=== PATIENT | female | born 1995 | race African-American/Black ===

== ENCOUNTER 2024-09-01 17:46 | Outpatient (CLI) | payer BC, SELFPAY ==
--- OUTSIDE RECORDS SUMMARY | 2024-09-01 17:49 | XMS_ITS | Clinical Summary ---
Author Organization [facility] Address [address] [place] [id number] Care Team Providers Care Php Programmer Name Role Phone Ricardo Pryor PA-C Primary Care Provider [phone]- [phone] Allergies No known active allergies Medications norethindrone-et hinyl estradiol (AUROVELA 06/20) 1-20 MG-MCG tablet Take 1 tablet by mouth daily. Active Active Problems Problem Noted Date Diagnosed Date Teratoma of ovary, unspecified laterality 2024 Chronic abdominal pain 06/09/2024 Hemorrhoids, unspecified hemorrhoid type 025 Encounters Date Type Department Care Team Description 08/09/2024 9:40 AM CDT Office Visit [address] [phone] Ricardo Pryor PA-C Follow Up (Follow up) 08/09/2024 Travel 06/21/[address] [phone] Ricardo Pryor PA-C Results 06/15/2024 3:48 PM PULP MAKER - 06/15/2024 11:59 PM PULP MAKER Hospital Encounter [facility] [address] [place] [address] Ricardo Pryor PA-C Discharge Disposition: Home or Self Care (Routine Discharge) 06/15/2024 Travel 06/14/2024 Scan [facility] Scanned, [facility] 06/09/2024 9:00 AM PULP MAKER Office Visit [address] [phone] Ricardo Pryor PA-C New Patient (Establish care - pt c/o abdominal pain, sharp, episodes last around a couple minutes, everyday, belching, bloating, started 1 year ago ) 06/09/2024 Travel from Last 3 Months Family History Medical History Relation Comments Hypertension Mother Relation Status Comments Mother Social History Tobacco Use Types Packs/Day Years Used Date Smoking Tobacco: Never Passive Smoke Exposure: Never Smokeless Tobacco: Never Tobacco Cessation:Counseling Given: No Alcohol Use Standard Drinks/Week Comments Yes 1.7 (1 standard drink = 0.6 oz p ure alcohol) PHQ-2 Answer Date Recorded Patient Health Questionnaire-2 Score 0 06/09/2024 Comments No Sex and Gender Information Value Date Recorded Sex Assigned at Female 06/15/2024 3:47 PM PULP MAKER Legal Sex Female 2:50 PM PULP MAKER Gender Identity Not on file Sexual Orientation Not on file Last Filed Vital Signs Vital Sign Reading Time Taken Comments Blood Pressure 100/58 08/09/2024 9:43 AM CDT Pulse 86 08/09/2024 9:43 AM CDT Temperature 36.1 C (96.9 F) 08/09/2024 9:43 AM CDT Respiratory Rate 18 08/09/2024 9:43 AM CDT Oxygen Saturation 99% 08/09/2024 9:43 AM CDT Inhaled Oxygen Concentration - - Weight 57 kg (125 lb 9.6 oz) 08/09/2024 9:43 AM CDT Height 157.5 cm (5' 2 ) 08/09/2024 9:43 AM CDT Body Mass Index 22.97 08/09/2024 9:43 AM CDT Plan of Treatment Upcoming Encounters Date Type Department Care Team (Late st Contact Info) Description 08/15/2025 8:20 AM CDT Office Visit [address] [phone] Ricardo Pryor PA-C [address] [place] [address] Health Maintenance Due Date Last Done Comments Cervical Cancer Screening Pa p Smear (Age 21 to 29) Every 3 Years 1997 Annual Physical 2000 Hepatitis C 2015 DTaP, Tdap and Td Vaccines ( 1 - Tdap) 2016 Hepatitis B Vaccines (1 of 3 - 19+ 3-dose series) 2016 COVID-19 Vaccine (1 - 2023-2 5 season) 2024 Cervical Cancer Screening 06/09/2025 Po stponed from 1997 (Going to Outside Clinic) PHQ-2 (Physician [place]) Completed 06/09/2024 HPV Vaccines Aged Out No longer eligi ble based on patient's age to complete this topic Meningococcal B Vaccine Aged Out No l onger eligible based on patient's age to complete this topic Meningococcal Vaccine Aged Out No juanita hebert eligible based on patient's age to complete this topic Pneumococcal Vaccine: Pediat rics (0 to 5 Years) and At-Risk Patients (6 to 64 Years) Aged Out No longer eligi ble based on patient's age to complete this topic RSV Immunizations Under 20 Months Aged Out No longer eligible based on patient's age to complete this topic Procedures Procedure Name Priority Date/Time Associated Diagnosis Comments LIPASE Routine 08/06/2024 11:37 AM PULP MAKER Chronic abdominal pain AMYLASE Routine 08/06/2024 11:37 AM PULP MAKER Chronic abdominal pain COMPREHENSIVE METABOLIC PANEL Routine 08/06/2024 11:37 AM PULP MAKER Chronic abdominal pain CBC W/DIFF AUTOMATED Routine 08/06/2024 11:37 AM PULP MAKER Chronic abdominal pain CT ABD+PEL WO CON Routine 06/15/2024 4:0 4 PM PULP MAKER Chronic abdominal pain from Last 3 Months Results * COMPREHENSIVE METABOLIC PANEL (08/06/2024 11:37 AM PULP MAKER) GLUCOSE 83 65 - 99 mg/dL [facility] Comment: Fasting reference interval BUN 7 7 - 25 mg/dL [facility] CREATININE S/P/B 0.63 0.50 - 0.96 mg/dL [facility] GFR ESTIMATE 125 > OR = 60 mL/min/1. 73m2 [facility] BUN CREATININE RATIO SEE NOTE: (calc) [facility] Comment: Not Reported: BUN and Creatinine are within reference range. SODIUM S/P/B 138 135 - 146 mmol/L [facility] [employer] [facility] POTASSIUM S/P/B 4.3 3.5 - 5.3 mmol/L [facility] CHLORIDE S/P/B 104 98 - 110 mmol/L [facility] CO2 27 20 - 32 mmol/L [facility] CALCIUM S/P/B 9.2 8.6 - 10.2 mg/dL [facility] TOTAL PROTEIN S/P/B 7.2 6.1 - 8.1 g/dL [facility] [employer] ALBUMIN S/P/B 4.0 3.6 - 5.1 g/dL [facility] GLOBULIN 3.2 1.9 - 3.7 g/dL (calc) [facility] ALBUMIN/GLOBULI N RATIO 1.3 1.0 - 2.5 (calc) [facility] BILIRUBIN TOTAL S/P/B 0.5 0.2 - 1.2 mg/dL [facility] ALKALINE PHOSPHATASE S/P/B 44 31 - 125 U/L [facility] AST 14 10 - 30 U/L [facility] ALT 9 6 - 29 U/L [facility] 08/06/2024 11:3 7 AM PULP MAKER 08/06/2024 11:38 AM PULP MAKER Narrative Resulting Agency Comment Performing Organization Information: Site ID: [place] Name: [facility] Address: [address] [place] [address] Director: Leila Velasco MD us Ricardo Pryor PA-C LABORATORY Final Resu lt [facility] [address] [place] [address], * CBC W/DIFF AUTOMATED (08/06/2024 11:37 AM PULP MAKER) WBC 8.3 3.8 - 10.8 Thousand/u L [facility] RBC 4.58 3.80 - 5.10 Million/uL [facility] HGB 12.4 11.7 - 15.5 g/dL [facility] HCT 38.7 35.0 - 45.0 % [facility] MCV 84.5 80.0 - 100.0 fL [facility] MCH 27.1 27.0 - 33.0 pg [facility] MCHC 32.0 32.0 - 36.0 g/dL [facility] Comment: For adults, a slight decrease in the calculated MCHC value (in the range of 30 to 32 g/dL) is most likely not clinically significant; however, it should be interpreted with caution in correlation with other red cell parameters and the patient's clinical condition. RDW 14.3 11.0 - 15.0 % [facility] PLT 352 140 - 400 Thousand/u L [facility] MPV 10.6 7.5 - 12.5 fL [facility] ABS. NEUTROPHILS 4,241 1,500 - 7,800 cells/uL [facility] ABS. LYMPHOCYTES 3,121 850 - 3,900 cells/uL [facility] ABS. MONOCYTES 465 200 - 950 cells/uL [facility] ABS. EOSINOPHILS 390 15 - 500 cells/uL [facility] ABS. BASOPHILS 83 0 - 200 cells/uL [facility] SEG NEUTROPHILS 51.1 % [facility] LYMPHOCYTES 37.6 % [facility] MONOCYTES 5.6 % [facility] EOSINOPHILS 4.7 % [facility] BASOPHILS 1.0 % [facility] 08/06/2024 11:3 7 AM PULP MAKER 08/06/2024 11:38 AM PULP MAKER Narrative Resulting Agency Comment Performing Organization Information: Site ID: [place] Name: [facility] Address: [address] [address] Director: Leila Velasco MD us Ricardo Pryor PA-C LABORATORY Final Resu lt FRANCISCO THAKUR [facility] [address] [place] [address], [place] * AMYLASE (08/06/2024 11:37 AM PULP MAKER) AMYLASE S/P/B 51 21 - 101 U/L [facility] 08/06/2024 11:3 7 AM PULP MAKER 08/06/2024 11:38 AM PULP MAKER Narrative Resulting Agency Comment Performing Organization Information: Site ID: [facility]UBINA Name: [facility] Address: [address] [place], [place] [address]ner [facility] [place] [address] Director: Leila Velasco MD Ricardo Pryor PA-C LABORATORY Final Resu lt FRANCISCO THAKUR [facility] [id number] [place] [address], [place] [address], [place] * LIPASE (08/06/2024 11:37 AM PULP MAKER) LIPASE 15 7 - 60 U/L [facility] 08/06/2024 11:3 7 AM PULP MAKER 08/06/2024 11:38 AM PULP MAKER Narrative Resulting Agency Comment Performing Organization Information: Site ID: RUBINA Name: Francisco [facility] Address: [address] [place], [place] [address] [place] [address] Director: Leila Velasco MD Ricardo Pryor PA-C LABORATORY Final Resu lt FRANCISCO THAKUR [facility] [address] [place] [address], [place] * CT ABD+PEL WO CON (06/15/2024 4:04 PM PULP MAKER) Anatomical Region Laterality Modality Abdomen Computed Tomogra phy 06/15/2024 7:36 PM PULP MAKER Impressions 06/15/2024 7:41 PM PULP MAKER IMPRESSION: Bilateral mature ovarian teratomas. Recommend surgical CUSTOMS EXAMINER consultation. Referred By: RICARDO PRYOR Interpreted By: Alva Pereira DO, 06/15/2024 7:36 PM Narrative 06/15/2024 7:41 PM PULP MAKER [address] [address] STUDY: CT ABD+PEL WO CON: 06/15/2024 3:51 PM CLINICAL INFORMATION: chronic abdominal pain COMPARISON: None. TECHNIQUE: CT acquisition of the abdomen and pelvis. Coronal and sagittal reformatted images provided. A dose lowering technique was utilized for this procedure which may include but is not limited to dose reduction techniques, automated exposure control, and/or the use of iterative reconstruction in accordance with ALARA principle. IV Contrast: None Oral contrast: None. FINDINGS: LOWER CHEST: Unremarkable. ABDOMEN/PELVIS: Liver: Normal. Gallbladder/biliary: Normal gallbladder. No biliary ductal dilation. Pancreas: Unremarkable. Spleen: Normal. Adrenal glands: Normal. Kidneys and ureters: No hydronephrosis or hydroureter. No renal calcifications. Bladder: Normal. Reproductive organs: There are 2 adjacent masses which appear circumscribed and contain gross fat, soft tissue, and calcifications. The one on the right measures 3 6.6 x 4.6 x 5.5 cm. Mass on the left measures 10.1 x 6.0 x 7.5 cm. Stomach/bowel: Nonobstructive appearance. Appendix: Normal. Lymph nodes: No lymphadenopathy. Peritoneum: No intraperitoneal free air. No intraperitoneal free fluid. Vessels: Normal. MUSCULOSKELETAL: Abdominal wall: No soft tissue mass. Bones: No acute osseous abnormality. Soft tissues: Unremarkable. Procedure Note Alva Pereira DO - 06/15/[address] [address] STUDY: CT ABD+PEL WO CON: 06/15/2024 3:51 PM CLINICAL INFORMATION: chronic abdominal pain COMPARISON: None. TECHNIQUE: CT acquisition of the abdomen and pelvis. Coronal and sagittalreformatted images provided. A dose lowering technique was utilized forthis procedure which may include but is not limited to dose reductiontechniques, automated exposure control, and/or the use of iterativereconstruction in accordance with ALARA principle. IV Contrast: None Oral contrast: None. FINDINGS: LOWER CHEST: Unremarkable. ABDOMEN/PELVIS: Liver: Normal. Gallbladder/biliary: Normal gallbladder. No biliary ductal dilation. Pancreas: Unremarkable. Spleen: Normal. Adrenal glands: Normal. Kidneys and ureters: No hydronephrosis or hydroureter. No renalcalcifications. Bladder: Normal. Reproductive organs: There are 2 adjacent masses which appearcircumscribed and contain gross fat, soft tissue, and calcifications. Theone on the right measures 3 6.6 x 4.6 x 5.5 cm. Mass on the left rnwaepwu53.1 x 6.0 x 7.5 cm. Stomach/bowel: Nonobstructive appearance. Appendix: Normal. Lymph nodes: No lymphadenopathy. Peritoneum: No intraperitoneal free air. No intraperitoneal free fluid. Vessels: Normal. MUSCULOSKELETAL: Abdominal wall: No soft tissue mass. Bones: No acute osseous abnormality. Soft tissues: Unremarkable. IMPRESSION: Bilateral mature ovarian teratomas. Recommend surgical GYNconsultation. Referred By: RICARDO PRYOR Interpreted By: Alva Pereira DO, 06/15/2024 7:36 PM Ricardo Pryor PA-C CT Final Resu lt from Last 3 Months Insurance [facility] Care Teams Php Programmer Relationship Specialty Start Date End Date Ricardo Pryor PA-C [address] [place] [id number] PCP - General PHYSICIAN MOTEL MAID 06/09/24
== END 2024-09-01 17:47 | disposition home or self-care (01) ==
LOC: ANHLAB 17:48
PROVIDERS: Visit Provider Anesthesiology
DX: N83.209 Unspecified ovarian cyst, unspecified side (principal); N75.0 Cyst of Bartholin's gland
CPT/HCPCS: 36415; 86850; 86900; 86901

== ENCOUNTER 2024-09-12 00:15 | Day surgery (SDC) | payer BC, SELFPAY ==
[2024-09-01 10:57] VITALS: BMI 23.1
--- NOTE | 2024-09-01 10:58 | PC.NURSE ---
Report to the Outpatient Waiting Room, entrance under the green pavilion located off [facility], at time _0600_ on date _[id number]_. Planned Procedure Time: _0730_.? Time changes happen often and if your time is changed the preop area will call you the afternoon before. - You and your visitor will be asked to self-screen and do not enter if you have any COVID symptoms. Please call surgeon if you need to reschedule. - A mask is optional within the hospital at this time. Patients may have clear liquids (water, carbonated beverages, clear teas, apple juice) until 3 hours prior to surgery with a maximum of 20 ounces. - No food from midnight until time of surgery and no smoking, or chewing tobacco (or any form of nicotine). No chewing gum, candy or mints. Take only the following medications with a SIP of water on the morning of surgery: ___None____ DO NOT STOP ANY OF YOUR OTHER PRESCRIPTION MEDICATIONS PRIOR TO SURGERY EXCEPT THE FOLLOWING Hold all vitamins and supplements for 3 days per anesthesiologist. Medications to discontinue per physician Date to take last [id number]___[phone]____ Please no make-up, nail austrian, hairspray, perfume, deodorant, or body powder the day of surgery.? No jewelry (including any body piercings) or valuables the day of surgery, leave them at home.? Please take a shower or bath the night before, or the morning of, surgery with an antibacterial soap.? Wear comfortable, loose fitting clothing.? - Jewelry must be removed prior to entering the operating room.? Rings and piercings that are not removed may be cut off. - The hospital will not accept responsibility for valuables.? - Please leave all valuables, including medications, at home the day of surgery. If you are going home after surgery, a licensed catering driver must drive you home.? - NO public transportation without another adult if you receive anesthesia. - We recommend that an adult stay with you for 24 hours following discharge. - We also recommend that you do not drive, make important decision, drink alcoholic beverages, or take any drugs that were not prescribed by your health care provider for at least 24 hours after your discharge time. Follow any additional instructions given to you from your surgeon. Telephone instructions given to __Kathia___and asked if any additional questions and then verbalized understanding. Patient advised to call surgeon office or pre surgery nurse liaison [phone] if any additional questions.
--- NOTE | 2024-09-11 09:47 | P.HP_ITS ---
H&P: HPI History of Present Illness Date/Time: 09/11/24 09:47 Chief Complaint: pelvic pain Narrative: Kathia is a 29yo G0, who presents for surgery. She was having mid/upper right abdominal pain on and off for probably a year. She established care with a PCP who ordered a CT scan which showed bilateral ovarian cyst. TRAINING PROJECT MANAGER US was then ordered and showed a left sided cyst measuring ~10cm, right side is smaller at ~ 1-3cm; both appear to be dermoids. She also has a left bartholin's gland cyst. She has a h/o bartholin's cyst on this side and had it I&D'ed with catheter placement but it returned a couple months later and has been present since about 07/2023. she reports it is sometimes a little bothersome during intercourse. She has been on OCPs; no major issues with the Aurovela OCPs (would like that pill specifically). Review of Systems Constitutional: Constitutional: Denies chills, Denies fever(s) and Denies headache(s) Eyes: Eyes: Denies change in vision ENT: Denies dizziness and Denies headache(s) Cardiovascular: Cardiovascular: Denies chest pain and Denies dyspnea Respiratory: Respiratory: Denies cough and Denies dyspnea Gastrointestinal: Gastrointestinal: Denies abdominal pain and Denies change in stool character Genitourinary: Genitourinary: Denies abnormal menses, Reports genital lesions, Reports pelvic pain, Denies vaginal discharge, Denies vaginal odor and Denies vaginal pruritus Neurologic: Denies dizziness and Denies headache(s) Psychiatric: Psychiatric: Denies anxiety and Denies depression [facility] Past Medical History Medical History (Updated 07/06/24 @ 16:44 by Manda Knutson MD) Ovarian cyst Family History Family History Mother Hypertension Social History Social History (Updated 07/06/24 @ 15:56 by Sam Fong MA) Smoking status: Never smoker Second hand tobacco smoke exposure: No Alcohol intake: current Substance use: never Substance use type: does not use Do You Feel Safe in your Home?: Yes Lack of Transportation: No Lack of Food: Never True Current Housing: I Have Housing Concerned About Future Housing: No Difficulty Paying Gas/Electric Bills: No Difficulty Paying for Meds: No Currently Unemployed: No Education: Bachelor's Degree Difficulty w/ Childcare or Family Care: No Living arrangements: alone Occupation/Education: occupation Gender identity (if verbalized by the patient): Female Sexual Orientation (if Verbalized by the Patient): Straight or Heterosexual Spiritual care concerns: No Meds Home Medications and Allergies Home Medications ?Medication ?Instructions ?Recorded ?Confirmed ?Type cetirizine 10 mg tablet 10 mg PO DAILY PRN allergy symptoms 02/10/24 09/01/24 History Aurovela 24 Fe 1 mg-20 mcg (24)/75 1 tablet PO DAILY #84 tabs 07/06/24 09/01/24 Rx mg (4) tablet (norethindrone-e.estradiol-iron) multivitamin 1 tablet PO DAILY 07/06/24 09/01/24 History zinc acetate 25 mg (zinc) capsule 25 mg PO DAILY 07/06/24 09/01/24 History Allergies Allergy/AdvReac Type Severity Reaction Status Date / Time No Known Allergies Allergy Verified 09/01/24 10:48 Exam Const: General: cooperative, healthy appearing, comfortable and no acute distress Orientation/consciousness: patient oriented x3 Resp: Effort & Inspection: normal respiratory effort Cardio: Rate: regular rate GI: Inspection: normal to inspection GI Palp: No abdominal tenderness and Yes Soft to palpation : Other: deferred to OR Skin: General skin exam: normal color Neuro: General: patient oriented x3 Extrem: General: normal to inspection Psych: Appearance: grossly normal Affect: normal affect Attitude: cooperative Assessment and Plan Assessment and plan (1) Ovarian cyst: Qualifiers: Laterality: bilateral Qualified Code(s): N83.201 - Unspecified ovarian cyst, right side; N83.202 - Unspecified ovarian cyst, left side Code(s): N83.209 - Unspecified ovarian cyst, unspecified side Status: Acute (2) Cyst of left Bartholin's gland: Code(s): N75.0 - Cyst of Bartholin's gland Status: Acute Plan - Will proceed with scheduling robotic assisted left ovarian cystectomy, left Bartholin's gland marsupialization, and possible right ovarian cystectomy, possible chromopertubation - Risks and benefits discussed in detail
[2024-09-12] VITALS (12 sets, daily range): BP systolic 95–114; BP diastolic 62–93; PULSE 68–109; RESP 14–18; TEMP 36.2–36.6; O2SAT 99–100
--- OUTSIDE RECORDS SUMMARY | 2024-09-12 00:17 | XMS_ITS | Clinical Summary ---
Author Organization [facility] Address [address] [place] [id number] Care Team Providers Care Stock Grader Name Role Phone Ricardo Pryor PA-C Primary Care Provider [phone]- [phone] Allergies No known active allergies Medications norethindrone-et hinyl estradiol (AUROVELA 06/20) 1-20 MG-MCG tablet Take 1 tablet by mouth daily. Active Active Problems Problem Noted Date Diagnosed Date Teratoma of ovary, unspecified laterality 2024 Chronic abdominal pain 06/09/2024 Hemorrhoids, unspecified hemorrhoid type 025 Encounters Date Type Department Care Team Description 08/09/2024 9:40 AM CDT Office Visit [address] [phone] Ricardo Pryor PA-C Follow Up (Follow up) 08/09/2024 Travel 06/21/[address] [phone] Ricardo Pryor PA-C Results 06/15/2024 3:48 PM SENIOR GIS ANALYST - 06/15/2024 11:59 PM SENIOR GIS ANALYST Hospital Encounter [facility] [address] [place] [address] Ricardo Pryor PA-C Discharge Disposition: Home or Self Care (Routine Discharge) 06/15/2024 Travel 06/14/2024 Scan [facility] Scanned, [facility] from Last 3 Months Family History Medical [...] Sex Assigned at Female 06/15/2024 3:47 PM SENIOR GIS ANALYST Legal Sex Female 2:50 PM SENIOR GIS ANALYST Gender Identity Not on file Sexual Orientation [...] Description 08/15/2025 8:20 AM CDT Office Visit [facility] Family Medicine - [place] [address] [place] [phone] Ricardo Pryor PA-C [address] [place] [address] Health Maintenance Due Date Last Done Comments Cervical Cancer Screening Josafat urrutia Smear (Age 21 to 29) Every 3 Years 1997 Annual Physical 2000 Hepatitis C 2015 DTaP, Tdap and Td Vaccines ( 1 - Tdap) 2016 Hepatitis B Vaccines (1 of 3 - 19+ 3-dose series) 2016 COVID-19 Vaccine (1 - 2024-2 5 season) 2024 Cervical Cancer Screening 06/09/2025 Po stponed from 1997 (Going to Outside Clinic) PHQ-2 (Physician [place]) Completed 06/09/2024 HPV Vaccines Aged Out No [...] 5 Years) and At-Risk Patients (6 to 49 Years) Aged Out No longer eligi ble based on patient's age to complete this topic RSV Immunizations Under 20 Months Aged Out No longer eligible based on patient's age to complete this topic Procedures Procedure Name Priority Date/Time Associated Diagnosis Comments LIPASE Routine 08/06/2024 11:37 AM SENIOR GIS ANALYST Chronic abdominal pain AMYLASE Routine 08/06/2024 11:37 AM SENIOR GIS ANALYST Chronic abdominal pain COMPREHENSIVE METABOLIC PANEL Routine 08/06/2024 11:37 AM SENIOR GIS ANALYST Chronic abdominal pain CBC W/DIFF AUTOMATED Routine 08/06/2024 11:37 AM SENIOR GIS ANALYST Chronic abdominal pain CT ABD+PEL WO CON Routine 06/15/2024 4:0 4 PM SENIOR GIS ANALYST Chronic abdominal pain from Last 3 Months Results * COMPREHENSIVE METABOLIC PANEL (08/06/2024 11:37 AM SENIOR GIS ANALYST) GLUCOSE 83 65 - 99 mg/dL [facility] Comment: Fasting reference interval BUN 7 7 - 25 mg/dL [facility] CREATININE S/P/B 0.63 0.50 - 0.96 mg/dL [facility] GFR ESTIMATE 125 > OR = 60 mL/min/1. 73m2 [facility] BUN CREATININE RATIO SEE NOTE: (calc) [facility] Comment: Not Reported: BUN and Creatinine are within reference range. SODIUM S/P/B 138 135 - 146 mmol/L [facility] POTASSIUM S/P/B 4.3 3.5 - 5.3 mmol/L [facility] CHLORIDE S/P/B 104 98 - 110 mmol/L [facility] CO2 27 20 - 32 mmol/L [facility] CALCIUM S/P/B 9.2 8.6 - 10.2 mg/dL [facility] TOTAL PROTEIN S/P/B 7.2 6.1 - 8.1 g/dL [facility] ALBUMIN S/P/B 4.0 3.6 - 5.1 g/dL [facility] GLOBULIN 3.2 1.9 - 3.7 g/dL (calc) [facility] ALBUMIN/GLOBULI N RATIO 1.3 1.0 - 2.5 (calc) [facility] BILIRUBIN TOTAL S/P/B 0.5 0.2 - 1.2 mg/dL [facility] ALKALINE PHOSPHATASE S/P/B 44 31 - 125 U/L [facility] AST 14 10 - 30 U/L [facility] ALT 9 6 - 29 U/L [facility] 08/06/2024 11:3 7 AM SENIOR GIS ANALYST 08/06/2024 11:38 AM SENIOR GIS ANALYST Narrative Resulting Agency Comment Performing Organization Information: Site ID: [id number] Name: [facility] Address: [address] [place], [place] [address] [place] [address] Director: Leila Velasco MD us Ricardo Pryor PA-C LABORATORY Final Resu lt [facility] [id number] [place] [address] [place] [address], * CBC W/DIFF AUTOMATED (08/06/2024 11:37 AM SENIOR GIS ANALYST) WBC 8.3 3.8 - 10.8 Thousand/u L [facility] RBC 4.58 3.80 - 5.10 Million/uL [facility] HGB 12.4 11.7 - 15.5 g/dL [facility] HCT 38.7 35.0 - 45.0 % [facility] MCV 84.5 80.0 - 100.0 fL [facility] MCH 27.1 27.0 - 33.0 pg [facility] MCHC 32.0 32.0 - 36.0 g/dL [facility] Comment: For adults, a slight decrease in the calculated MCHC value (in the range of 30 to 32 g/dL) is most likely not clinically significant; however, it should be interpreted with caution in correlation with other red cell parameters and the patient's clinical condition. RDW 14.3 11.0 - 15.0 % [facility] PLT 352 140 - 400 Thousand/u L [facility] MPV 10.6 7.5 - 12.5 fL [facility] ABS. NEUTROPHILS 4,241 1,500 - 7,800 cells/uL [facility] ABS. LYMPHOCYTES 3,121 850 - 3,900 cells/uL [facility] ABS. MONOCYTES 465 200 - 950 cells/uL [facility] ABS. EOSINOPHILS 390 15 - 500 cells/uL [facility] ABS. BASOPHILS 83 0 - 200 cells/uL [facility] SEG NEUTROPHILS 51.1 % [facility] LYMPHOCYTES 37.6 % [facility] MONOCYTES 5.6 % [facility] EOSINOPHILS 4.7 % [facility] BASOPHILS 1.0 % [facility] 08/06/2024 11:3 7 AM SENIOR GIS ANALYST 08/06/2024 11:38 AM SENIOR GIS ANALYST Narrative Resulting Agency Comment Performing Organization Information: Site ID: [id number] Name: [facility] Address: [address] [place] [address] Director: Leila Velasco MD Ricardo Pryor PA-C LABORATORY Final Resu lt [facility] Leann [facility]AKUR [facility] [id number] [place] [address], * AMYLASE (08/06/2024 11:37 AM SENIOR GIS ANALYST) AMYLASE S/P/B 51 21 - 101 U/L [facility] 08/06/2024 11:3 7 AM SENIOR GIS ANALYST 08/06/2024 11:38 AM SENIOR GIS ANALYST Narrative Resulting Agency Comment Performing Organization Information: Site ID: [id number] Name: [facility] Address: [id number] [place] [phone] Director: Leila Velasco MD Ricardo Pryor PA-C LABORATORY Final Resu lt Performing Organization Address [facility] Co de Phone Number [facility] [id number] [place] [phone], * LIPASE (08/06/2024 11:37 AM SENIOR GIS ANALYST) LIPASE 15 7 - 60 U/L [facility] 08/06/2024 11:3 7 AM SENIOR GIS ANALYST 08/06/2024 11:38 AM SENIOR GIS ANALYST Narrative Resulting Agency Comment Performing Organization Information: Site ID: [id number] Name: [facility] Address: [address] [place] [id number] Director: Leila Velasco MD Ricardo Pryor PA-C LABORATORY Final Resu lt Performing Organization Address City/[facility] Co de Phone Number [facility] [address] [address], [place] * CT ABD+PEL WO CON (06/15/2024 4:04 PM SENIOR GIS ANALYST) Anatomical Region Laterality Modality Abdomen Computed Tomogra phy 06/15/2024 7:36 PM SENIOR GIS ANALYST Impressions 06/15/2024 7:41 PM SENIOR GIS ANALYST IMPRESSION: Bilateral mature ovarian teratomas. Recommend surgical MAIL CARRIER TECHNICIAN consultation. Referred By: RICARDO PRYOR Interpreted By: Alva Pereira DO, 06/15/2024 7:36 PM Narrative 06/15/2024 7:41 PM SENIOR GIS ANALYST [address] [address] STUDY: CT ABD+PEL WO CON: 06/15/2024 3:51 [...] abnormality. Soft tissues: Unremarkable. Procedure Note Alva Pereira, DO - 06/15/[address] [address] STUDY: CT ABD+PEL WO CON: 06/15/2024 3:51 [...] x 5.5 cm. Mass on the left pppbyubu37.1 x 6.0 x 7.5 cm. Stomach/bowel: Nonobstructive appearance. Appendix: Normal. Lymph nodes: No lymphadenopathy. Peritoneum: No intraperitoneal free air. No intraperitoneal free fluid. Vessels: Normal. MUSCULOSKELETAL: Abdominal wall: No soft tissue mass. Bones: No acute osseous abnormality. Soft tissues: Unremarkable. IMPRESSION: Bilateral mature ovarian teratomas. Recommend surgical GYNconsultation. Referred By: RICARDO PRYOR Interpreted By: Alva Pereira DO, 06/15/2024 7:36 PM us Ricardo Pryor PA-C CT Final Resu lt from Last 3 Months Insurance [facility] Care Teams Stock Grader Relationship Specialty Start Date End Date Ricardo Pryor PA-C [address] [place] [address]. [place] [address] PCP - General PHYSICIAN PREVENTATIVE MAINTENANCE TECHNICIAN 06/09/24
[2024-09-12] MEDS: LACTATED RINGERS 1,000 ML 30 ML IV CONT ×2 (06:45→10:13)
[2024-09-12] MEDS: ACETAMINOPHEN 500 MG TABLET 1000 MG PO (07:00)
[2024-09-12] MEDS: KETOROLAC 15 MG/ML VIAL (*BKC) IV PUSH (07:00)
--- NOTE | 2024-09-12 07:03 | WPDANESEPPF ---
Anes - Initial Pre Proc Eval Procedure: Operation Date: 09/12/24 07:30 Proposed Procedures p Robotic Assisted Laparoscopic Left Ovarian Cystectomy, Marsupialization of Bartholin Gland cyst - Manda Knutson MD Date/Time: 09/12/24 07:03 Surgeon: Manda Kuntson MD Pre Op Diagnosis: Lt Ovarian Cyst, Bartholin Gland Cyst Patient Data Age: 29 Gender: F Height: 1.57 m Weight: 57.3 kg Allergies Allergy/AdvReac Type Severity Reaction Status Date / Time No Known Allergies Allergy Verified 09/01/24 10:48 Home Medications ?Medication ?Instructions ?Recorded ?Confirmed ?Type cetirizine 10 mg tablet 10 mg PO DAILY PRN allergy symptoms 02/10/24 09/01/24 History Aurovela 24 Fe 1 mg-20 mcg (24)/75 1 tablet PO DAILY #84 tabs 07/06/24 09/01/24 Rx mg (4) tablet (norethindrone-e.estradiol-iron) multivitamin 1 tablet PO DAILY 07/06/24 09/01/24 History zinc acetate 25 mg (zinc) capsule 25 mg PO DAILY 07/06/24 09/01/24 History Patient hx anesthesia problems: none Family hx anesthesia problems: none Results Review: All pre-operative results and documents have been reviewed as part of the pre-operative evaluation. [facility] Past Medical History Medical History Ovarian cyst Family History Family History Mother Hypertension Social History Social History Smoking status: Never smoker Second hand tobacco smoke exposure: No Alcohol intake: current Substance use: never Substance use type: does not use Do You Feel Safe in your Home?: Yes Lack of Transportation: No Lack of Food: Never True Current Housing: I Have Housing Concerned About Future Housing: No Difficulty Paying Gas/Electric Bills: No Difficulty Paying for Meds: No Currently Unemployed: No Education: Bachelor's Degree Difficulty w/ Childcare or Family Care: No Living arrangements: alone Occupation/Education: occupation Gender identity (if verbalized by the patient): Female Sexual Orientation (if Verbalized by the Patient): Straight or Heterosexual Spiritual care concerns: No Anes - Eval Final PreProcedure Day of Procedure 09/12/24 07:03 Patient weight: normal Heart: regular rate and rhythm Lungs: clear to auscultation Airway: Mallampati scale class 1 Neurological: alert and oriented Last oral intake: >/= 8 hours ASA classification: I Emergent: no Anesthetic plan: proceed Anesthesia type and monitoring: general ETT and standard monitoring Results Review: All pre-operative results and documents have been reviewed as part of the pre-operative evaluation. Informed Consent: The patient's anesthetic plan and its attendant risks and benefits were discussed with the patient/family/POA. Questions were solicited and answers provided to the satisfaction of the patient/family/POA.
--- NOTE | 2024-09-12 07:10 | WPDHPUPDATE1 ---
History and Physical Update Update Date/Time: 09/12/24 07:10 History and Physical has been reviewed, including an updated exam of the patient. There are NO changes in the patient's condition. Risks, benefits, and alternatives have been discussed and questions answered. Patient agrees to proceed with robotic assisted left ovarian cystectomy, left Bartholin's gland marsupialization, and possible right ovarian cystectomy, possible chromopertubation.
[2024-09-12 07:36] LABS: BEDSIDEPREGUCG Negative (Negative)
[2024-09-12] MEDS: BUPIVACAINE/EPINEPHRINE 0.5% 50 ML VIAL 30 ML INFILTRATE (08:27)
[2024-09-12] MEDS: METHYLENE BLUE 0.5% INJ 10 ML AMPULE IRRIGATION (09:40)
--- NOTE | 2024-09-12 10:12 | P.OP_ITS ---
Procedure Note - Detailed Date of Procedure 09/12/24 Pre-op Diagnosis Lt Ovarian Cyst, Bartholin Gland Cyst Post-op Diagnosis Same (+ right ovarian cyst) Procedure Performed Robotic assisted bilateral ovarian cystectomy, chromopertubation, left Bartholin's gland marsupialization Surgeon Manda Knutson MD Creative Services Intern Lisa Anesthesia General and Local (18cc of 0.5% marcaine w/ epi) Findings Uterus sounded to 8cm, bilateral ovarian cysts; left ovarian cyst at least 10cm, right ovarian cyst ~5cm-- both dermoids. Surgicel powder used at end of case Bilateral fallopian tubes patent with spillage of methylene blue dye Left Bartholin's gland; ~3cm, clear mucus noted from gland. Good hemostasis noted at end of case. Description of Procedure Kathia was taken to the operating room where she was placed under general endotracheal anesthesia without complications. She was then prepped and draped in the usual sterile fashion in the dorsal lithotomy position with her legs in low Saroj stirrups and her arms tucked at her side with a strap over her chest. A time-out was performed and no preoperative antibiotics were indicated. My attention was turned down below where a pope catheter was placed. A bivalve speculum was then placed within the vagina where the cervix was easily identified. The anterior lip of the cervix was grasped with a single-tooth tenaculum, the uterus was sounded, it was serially dilated and a diagnostic uterine manipulator was placed without complications. My gloves were changed and my attention was turned to her abdomen. Once it was verified that an oral gastric tube was in place, an incision was made in palmers point, and a 5 mm trocar was placed under direct visualization without complications. Once intra- abdominal placement was confirmed the abdomen was insufflated with carbon michelle xide gas. Two additional ports were placed on the right and left side and the camera port was placed supraumbilical under direct visualization without issues. The 5mm port was switched out for the accessory port under direct visualization. The patient was then placed in deep Trendelenburg, with the legs slightly lowered. The robot was then docked. The instruments were placed intra- abdominally under direct visualization. I then un-scrubbed and went to the robotic console. The above findings were noted. I then started my cystectomy on the left side. The left ovary was elevated out of the posterior cul-de-sac and a linear incision was made longitudinally over the cyst. The ovarian tissue was elevated and the underlying cyst was slowly shelled out using traction counter traction. Some bleeding was noted so the smaller blood vessels were cauterized using the monopolar scissors. Traction and counter traction using blunt dissection as well as some monopolar cauterization was used to release the thicker adhesions. Slowly and carefully the cyst was shelled out with out complications and was placed in the upper abdomen. As I was trying to elevate the right ovarian cyst it was noted that my scissors had punctured the cyst and sebaceous fluid as well as hair were released. The right ovary was once again incised using the monopolar scissors and the same procedure was performed using traction counter traction with blunt dissection as well as small amounts of monopolar cauterization to release the dense adhesions as well as control the bleeding. The right ovarian cyst was also removed completely without complications. Good hemostasis was noted. The supraumbilical port was upsized to a 10 mm port under direct visualization without complications. A 7 cm bag was then placed with the and the abdomen and the right ovarian cyst was placed within the bag. The bag was then brought up to the skin surface. The incision was slightly extended and the right ovarian cyst within the bag was easily removed from the abdomen. A 15mm bag was then placed within the abdomen. The left ovarian cyst was then placed within the bag and the bag was brought up through the skin incision. The cyst was then punctured inside the bag some of the contents were suctioned out but most remained in the bag. The cysts remaining cyst sac within the bag was then removed from the abdomen without complications. The supraumbilical incision was then reapproximated using a towel clamp to help sustain the pneumoperitoneum. The Methylene blue was then pushed through the uterine manipulator and spillage of the blue methylene fluid was seen from bilateral fallopian tubes (pictures of each tube spilling fluid was obtained). The abdomen and pelvis were then irrigated with copious amounts of fluid and all the fluid was suctioned out of the abdomen. The ovaries were examined and very little bleeding was noted, Surgicel powder was then placed over the raw edges of each ovary. Good hemostasis was noted. All instruments were removed from the abdomen. The insufflation was released and the trocars were removed. The supraumbilical incision was reapproximated using 0 Vicryl and a running fashion. The 4 laparoscopic incision sites were reapproximated using 4-0 Monocryl and covered with Dermabond. The incisions were then infiltrated using 0.5% Marcaine with epinephrine. The uterine manipulator was removed. The left Bartholin's gland was palpated and a joshua shape skin marking was made. The tissue overlying the gland, was then infiltrated using 0.5% Marcaine with epinephrine. The incision was made on the marking in the overlying tissue. The gland was identified, and clear mucus fluid was noted. The cyst wall of the Bartholin's gland was excised using Metzenbaum scissors and sent to pathology. The skin was then reapproximated/sutured to the gland using 2-0 Vicryl in the normal fashion. Good hemostasis was noted. The area was infiltrated with additional local anesthesia for better pain control. The pope catheter was then removed. Sponge, lap, instrument, and needle counts were correct at the end of the procedure. Patient was awoken from general anesthesia and taken to recovery with plans of same-day discharge home. Estimated Blood Loss 50 IV Fluids 1,400 Urine Output 600 Packing No Pathology Yes (left and right ovarian cysts, left bartholin's gland cyst wall) Complications No immediate complications Condition Stable Disposition Same day [facility] Billing Surgery - Charge Forward: Surgery Billing
[2024-09-12] MEDS: fentaNYL CITRATE INJ (*CRX) 100 MCG/2 ML VIAL 25 MCG IV PUSH ×8 (10:27→11:17)
[2024-09-12] MEDS: oxyCODONE HCL (*CRX) 5 MG TAB IR PO (11:43)
[2024-09-12] MEDS: HYDROmorphone HCL INJ (*CRX) 1 MG/ML SYR 0.5 MG IV PUSH (12:15)
== END 2024-09-12 13:20 | disposition home or self-care (01) ==
PROVIDERS: PCP Physician Assistant; Visit Provider Obstetrics & Gynecology
PROC: 8E0W4CZ Robotic Assisted Procedure of Trunk Region, Percutaneous Endoscopic Approach (ICD-10-PCS; CPT 49320; principal; 2024-09-12 07:30)
DX: D27.1 Benign neoplasm of left ovary (principal); D27.0 Benign neoplasm of right ovary; N75.0 Cyst of Bartholin's gland
CPT/HCPCS: 56440; 58662; 88305; A9270; J1100; J1171; J1885; J2003; J2250; J2405; J2704; J3010; J7030; J7120; Q9968

== ENCOUNTER 2024-10-03 17:28 | Emergency (ER) | payer BC, SELFPAY ==
[2024-10-03] VITALS (19 sets, daily range): BP systolic 82–110; BP diastolic 48–84; PULSE 95–125; RESP 13–29; TEMP 36.6–39.4; O2SAT 97–100
--- NOTE | ~2024-10-03 | CT_ITS ---
CLINICAL INDICATION: Worsening abdominal pain COMPARISON: None. TECHNIQUE: Multiple contiguous axial images of the abdomen and pelvis were performed following the ad ministration of with 100 mL Omnipaque-350 intravenous contrast The dose-length product (DLP) was 202.51 mGy-cm. Automated exposure control and iterative reconstruction technique were employed. FINDINGS/OBSERVATIONS: Visualized lower thorax: The bilateral lung bases are clear. The heart is of normal size, without pericardial effusion. Liver: The liver demonstrates homogeneous enhancement and is not enlarged. Gallbladder and biliary system: The gallbladder is only minimally distended, and otherwise unremarkable. Pancreas: The pancreas enhances homogeneously without ductal dilatation. Spleen: The spleen enhances homogeneously and is not enlarged. Kidneys: The bilateral kidneys enhance symmetrically without hydronephrosis or renal calculi. Adrenal glands: Unremarkable. Gastrointestinal tract: Fecal stasis within the colon. Air is identified within the superficial soft tissues adjacent to the anterior abdominal wall, likely secondary to patient's history. Appendix: The appendix is not definitively visualized. However, no pericecal inflammatory change is identified suggest the presence of acute appendicitis. Vasculature: Unremarkable. Lymph nodes: No pathologically enlarged or morphologically suspicious lymph nodes within the retroperitoneum or at the root of the mesentery. Pelvic structures: The bladder is distended, and otherwise unremarkable. The uterus is anteverted and retroflexed and hyperemic, not uncommon for a patient of this age. No rim-enhancing fluid collections are identified within the perineum. Body wall and musculoskeletal: Postoperative change within the anterior abdominal wall in the supraumbilical position, also consiste nt with patient's history. No significant degenerative disease within the lower thoracic or lumbosacral spines. IMPRESSION: Findings related to patient's recent operative intervention. Otherwise, no acute findings within the abdomen or pelvis, as detailed above Reviewed, dictated and finalized at location A.
--- NOTE | ~2024-10-03 | XR_ITS ---
CHEST RADIOGRAPH CLINICAL HISTORY: fever . COMPARISON: None available TECHNIQUE: Single portable view of the chest. FINDINGS The cardiomediastinal silhouette is unremarkable. The lungs are clear. IMPRESSION: No focal infiltrate or effusion. Reviewed, dictated and finalized at location A.
--- OUTSIDE RECORDS SUMMARY | 2024-10-03 17:31 | XMS_ITS | Clinical Summary ---
Author Organization [facility] Address [address] [place] [id number] Care Team Providers Care Infrastructure Project Manager Name Role Phone Barbara Mora PA-C Primary Care Provider [phone]- [phone] Allergies No known active allergies Medications norethindrone-et hinyl estradiol (AUROVELA 06/20) 1-20 MG-MCG tablet Take 1 tablet by mouth daily. Active Active Problems Problem Noted Date Diagnosed Date Teratoma of ovary, unspecified laterality 2024 Chronic abdominal pain 06/09/2024 Hemorrhoids, unspecified hemorrhoid type 025 Encounters Date Type Department Care Team Description 09/12/2024 Scan [facility] SR[facility] Scanned, Doc Med Group Procedure (SCAN) 08/09/2024 9:40 AM CDT Office Visit [facility] Family Medicine - [place] [phone] Barbara Mora PA-C Follow Up (Follow up) 08/09/2024 Travel from Last 3 Months Family History [...] Sex Assigned at Female 06/15/2024 3:47 PM PATTERN CLEANER Legal Sex Female 2:50 PM PATTERN CLEANER Gender Identity Not on file Sexual Orientation [...] Description 08/15/2025 8:20 AM CDT Office Visit [facility] Medical [facility] Family Medicine - [address] [phone] Barbara Mora PA-C [address] [place] [address] Health Maintenance Due Date Last Done Comments Cervical Cancer Screening Pa p Smear (Age 21 to 29) Every 3 Years 1997 Annual Physical 2000 Hepatitis C 2015 DTaP, Tdap and Td Vaccines ( 1 - Tdap) 2016 Hepatitis B Vaccines (1 of 3 - 19+ 3-dose series) 2016 COVID-19 Vaccine ( - 2023-2 5 season) 2024 Cervical Cancer Screening 06/09/2025 Po stponed from 1997 (Going to Outside Clinic) PHQ-2 (Physician [place]) Completed 06/09/2024 HPV Vaccines Aged Out No [...] Procedure Name Priority Date/Time Associated Diagnosis Comments PROCEDURE GENERIC (SCAN ORDER) 09/12/2024 LIPASE Routine 08/06/2024 11:37 AM PATTERN CLEANER Chronic abdominal pain AMYLASE Routine 08/06/2024 11:37 AM PATTERN CLEANER Chronic abdominal pain COMPREHENSIVE METABOLIC PANEL Routine 08/06/2024 11:37 AM PATTERN CLEANER Chronic abdominal pain CBC W/DIFF AUTOMATED Routine 08/06/2024 11:37 AM PATTERN CLEANER Chronic abdominal pain from Last 3 Months Results * PROCEDURE GENERIC (SCAN ORDER) (09/12/2024) 09/12/2024 us Doc Med Group Scanned SCANNING Final Resu lt * COMPREHENSIVE METABOLIC PANEL (08/06/2024 11:37 AM PATTERN CLEANER) GLUCOSE 83 65 - 99 mg/dL [facility] Comment: Fasting reference interval BUN 7 7 - 25 mg/dL [facility] CREATININE S/P/B 0.63 0.50 - 0.96 mg/dL [facility] GFR ESTIMATE 125 > OR = 60 mL/min/1. 73m2 [facility] BUN CREATININE RATIO SEE NOTE: (calc) [facility] Comment: Not Reported: BUN and Creatinine are within reference range. SODIUM S/P/B 138 135 - 146 mmol/L [facility] POTASSIUM S/P/B 4.3 3.5 - 5.3 mmol/L [facility] CHLORIDE S/P/B 104 98 - 110 mmol/L [facility] CO2 27 20 - 32 mmol/L [facility] CALCIUM S/P/B 9.2 8.6 - 10.2 mg/dL [facility] TOTAL PROTEIN S/P/B 7.2 6.1 - 8.1 g/dL [facility] ALBUMIN S/P/B 4.0 3.6 - 5.1 g/dL [facility] GLOBULIN 3.2 1.9 - 3.7 g/dL (calc) [facility] ALBUMIN/GLOBULI N RATIO 1.3 1.0 - 2.5 (calc) [facility] BILIRUBIN TOTAL S/P/B 0.5 0.2 - 1.2 mg/dL [facility] [place] ALKALINE PHOSPHATASE S/P/B 44 31 - 125 U/L [employer] [facility] [place] AST 14 10 - 30 U/L [employer] [place] ALT 9 6 - 29 U/L [employer] [facility] 08/06/2024 11:3 7 AM PATTERN CLEANER 08/06/2024 11:38 AM PATTERN CLEANER Narrative Resulting Agency Comment Performing Organization Information: Site ID: [id number] Name: Francisco Mejía Address: [address] [place], [place] [address] [address] Director: Leila Velasco MD us Barbara Mora PA-C LABORATORY Final Resu lt [facility] RICHMOND - [facility] [id number] [place] [id number], * CBC W/DIFF AUTOMATED (08/06/2024 11:37 AM PATTERN CLEANER) WBC 8.3 3.8 - 10.8 Thousand/u L [employer] [facility] RBC 4.58 3.80 - 5.10 Million/uL [employer] [facility] HGB 12.4 11.7 - 15.5 g/dL [employer] [facility] HCT 38.7 35.0 - 45.0 % [employer] [place] MCV 84.5 80.0 - 100.0 fL [employer] [place] MCH 27.1 27.0 - 33.0 pg [employer] [place] MCHC 32.0 32.0 - 36.0 g/dL [employer] [facility] Comment: For adults, a slight decrease [...] BASOPHILS 83 0 - 200 cells/uL [facility] [place] SEG NEUTROPHILS 51.1 % [facility] [place] LYMPHOCYTES 37.6 % [facility] [place] MONOCYTES 5.6 % [facility] EOSINOPHILS 4.7 % [facility] BASOPHILS 1.0 % [facility] 08/06/2024 11:3 7 AM PATTERN CLEANER 08/06/2024 11:38 AM PATTERN CLEANER Narrative Resulting Agency Comment Performing Organization Information: Site ID: [id number] Name: [facility] Address: [address] [place] [phone] Director: Leila Velasco MD Barbara Mora PA-C LABORATORY Final Resu lt Performing Organization Address City/[facility]/ZIP Co de Phone Number [employer] [facility] [employer] [address] [address], [place] * AMYLASE (08/06/2024 11:37 AM PATTERN CLEANER) AMYLASE S/P/B 51 21 - 101 U/L [facility] 08/06/2024 11:3 7 AM PATTERN CLEANER 08/06/2024 11:38 AM PATTERN CLEANER Narrative Resulting Agency Comment Performing Organization Information: Site ID: [id number] Name: [facility] Address: [address] [place] [phone] Director: Leila Velasco MD Barbara Mora PA-C LABORATORY Final Resu lt [employer] [facility] [employer] [facility] [address] [address], [place] * LIPASE (08/06/2024 11:37 AM PATTERN CLEANER) LIPASE 15 7 - 60 U/L [facility] 08/06/2024 11:3 7 AM PATTERN CLEANER 08/06/2024 11:38 AM PATTERN CLEANER Narrative Resulting Agency Comment Performing Organization Information: Site ID: [id number] Name: Francisco Mejía Address: [address] [place] [address] Director: Leila Velasco MD us Barbara Mora PA-C LABORATORY Final Resu lt [facility] [place] [id number] [place] [id number], from Last 3 Months Insurance [facility] Care Teams Infrastructure Project Manager Relationship Specialty Start Date End Date Barbara Mora PA-C [address] [place] [id number] PCP - General PHYSICIAN HANDLE SEWER 06/09/24
--- NOTE | 2024-10-03 18:13 | ED_ITS ---
HPI - Allergic Reaction General Chief complaint: Allergic Reaction <Luz Galdamez MD - Last Filed: 10/03/24 18:41> Stated complaint: rash all over body <Luz Galdamez MD - Last Filed: 10/03/24 18:41> Time Seen by Provider: 10/03/24 17:57 <Luz Galdamez MD - Last Filed: 10/03/24 18:41> History of Present Illness HPI narrative: Patient is a 29-year-old female presenting with rash and fever. States that she had bilateral ovarian cystectomies about 3 weeks ago as well as marsupialization of a Bartholin cyst. She had a follow-up appointment last week and there was concern for infection involving the bartholin's site. She was started on Bactrim and Diflucan about 6 days ago. States that she took the 2nd dose of Diflucan several days ago. Yesterday she developed a rash all over her body. States that it was itchy yesterday. Today she developed a sore throat, she denies throat swelling or difficulty swallowing or breathing. Denies shortness of breath or chest pain. States that her throat just hurts. States that she has also had a fever. She has been having worsening abdominal pain again that she thinks may be related to menstruation. <Luz Galdamez MD - Last Filed: 10/03/24 18:41> Related Data Home medications: Home Medications ?Medication ?Instructions ?Recorded ?Confirmed ?Last Taken ?Type cetirizine 10 mg tablet 10 mg PO DAILY PRN allergy symptoms 02/10/24 09/27/24 Unknown History multivitamin 1 tablet PO DAILY 07/06/24 09/27/24 Unknown History zinc acetate 25 mg (zinc) capsule 25 mg PO DAILY 07/06/24 09/27/24 Unknown History <Luz Galdamez MD - Last Filed: 10/03/24 18:41> Allergies/adverse reactions: Allergies Allergy/AdvReac Type Severity Reaction Status Date / Time No Known Allergies Allergy Verified 10/03/24 17:29 <Luz Galdamez MD - Last Filed: 10/03/24 18:41> Review of Systems 2 Review of Systems: All systems reviewed & are unremarkable except as noted in HPI and below <Luz Galdamez MD - Last Filed: 10/03/24 18:41> [facility] Past Medical History Medical History: Medical History Ovarian cyst <Luz Galdamez MD - Last Filed: 10/03/24 18:41> Surgical History Surgical History: Surgical History S/P laparoscopic surgery left ovarian cystectomy 09/13/2024 <Luz Galdamez MD - Last Filed: 10/03/24 18:41> Family History Family History: Family History Mother Hypertension <Luz Galdamez MD - Last Filed: 10/03/24 18:41> Social History Social History: Social History Smoking status: Never smoker Second hand tobacco smoke exposure: No Alcohol intake: current Substance use: never Substance use type: does not use Do You Feel Safe in your Home?: Yes Lack of Transportation: No Lack of Food: Never True Current Housing: I Have Housing Concerned About Future Housing: No Difficulty Paying Gas/Electric Bills: No Difficulty Paying for Meds: No Currently Unemployed: No Education: Bachelor's Degree Difficulty w/ Childcare or Family Care: No Living arrangements: alone Additional living arrangements comments: single Occupation/Education: occupation Additional occupation/education comments: Customer Services Gender identity (if verbalized by the patient): Female Sexual Orientation (if Verbalized by the Patient): Straight or Heterosexual Spiritual care concerns: No <Luz Galdamez MD - Last Filed: 10/03/24 18:41> Exam 2 Narrative: GENERAL: Well-appearing, nontoxic, no acute distress HEAD: Normocephalic, atraumatic. EYES: PERRLA and EOMI. ENT: Mucous membranes a bit dry; posterior pharynx is erythematous, no edema or exudates; handling secretions easily NECK: Supple. CHEST: Clear to auscultation. No respiratory distress. No wheezing HEART: Tachycardic, regular rhythm ABDOMEN: Soft, +several well healing incisions anterior abdominal wall without evidence of infection or dehiscence; +tender in LLQ w/o guarding or rebound EXTREMITIES: Normal range of motion. No edema. SKIN: Warm, dry, +diffuse urticarial rash chest wall/arms, some scattered urticaria on legs NEURO: No focal deficits. Alert and oriented x3. PSYCH: Normal mood and affect. <Luz Galdamez MD - Last Filed: 10/03/24 18:41> Course Reevaluation(s) Reevaluation #1: Patient feeling better; no new pain, abdomen soft/nontender. CT without any acute acute abnormality. She feels much better after the medications, repeat vital signs are normal. She is agreeable to close outpatient management and strict precautions. Prescriptions provided for pain med. Patient agreeable to this plan. <Janene Cruz MD - Last Filed: 10/04/24 02:56> Vital Signs Vital signs: Vital Signs Temperature 97.8 F 10/03/24 17:43 Pulse Rate 122 H 10/03/24 17:43 Respiratory Rate 22 H 10/03/24 17:43 Blood Pressure 91/61 L 10/03/24 17:43 Pulse Oximetry 98 10/03/24 17:43 Oxygen Delivery Room Air 10/03/24 17:43 Temperature 99.1 F 10/03/24 22:31 Pulse Rate 98 10/03/24 22:31 Respiratory Rate 21 H 10/03/24 22:31 Blood Pressure 108/66 10/03/24 22:31 Pulse Oximetry 100 10/03/24 22:31 Oxygen Delivery Room Air 10/03/24 18:03 <Luz Galdamez MD - Last Filed: 10/03/24 18:41> Vital Signs Temperature 97.8 F 10/03/24 17:43 Pulse Rate 122 H 10/03/24 17:43 Respiratory Rate 22 H 10/03/24 17:43 Blood Pressure 91/61 L 10/03/24 17:43 Pulse Oximetry 98 10/03/24 17:43 Oxygen Delivery Room Air 10/03/24 17:43 Temperature 99.1 F 10/03/24 22:31 Pulse Rate 98 10/03/24 22:31 Respiratory Rate 21 H 10/03/24 22:31 Blood Pressure 108/66 10/03/24 22:31 Pulse Oximetry 100 10/03/24 22:31 Oxygen Delivery Room Air 10/03/24 18:03 <Janene Cruz MD - Last Filed: 10/04/24 02:56> MDM - Allergic Reaction MDM Narrative Medical decision making narrative: 29-year-old female presenting with diffuse rash, fever, worsening abdominal pain in setting of recent ovarian cystectomy and Bactrim usage. Patient is tachycardic and febrile to 102.9. Remainder of vitals within normal limits. She does have a diffuse urticarial rash, plan for IV Benadryl and Pepcid and Solu-Medrol. She denies any anaphylactic symptoms. She has tenderness mostly in the left lower quadrant, will obtain CT abdomen pelvis to evaluate for postoperative infection. Furthermore, she continues to have a sore throat and her posterior pharynx is rather erythematous. Will check a strep. Patient signed out at shift change pending blood work, CT abdomen pelvis. < Luz Galdamez MD - Last Filed: 10/03/24 18:41> 29-year-old female presenting with diffuse rash, fever, worsening abdominal pain in setting of recent ovarian cystectomy and Bactrim usage. Patient is tachycardic and febrile to 102.9. Remainder of vitals within normal limits. She does have a diffuse urticarial rash, plan for IV Benadryl and Pepcid and Solu-Medrol. She denies any anaphylactic symptoms. She has tenderness mostly in the left lower quadrant, will obtain CT abdomen pelvis to evaluate for postoperative infection. Furthermore, she continues to have a sore throat and her posterior pharynx is rather erythematous. Will check a strep. Patient signed out at shift change pending blood work, CT abdomen pelvis. <Janene Cruz MD - Last Filed: 10/04/24 02:56> Lab Data Result diagrams: 10/03/24 18:35 10/03/24 18:35 <Luz Galdamez MD - Last Filed: 10/03/24 18:41> Labs: Lab Results 10/03/24 10/03/24 Range/Units 18:35 19:54 WBC 5.6 (4.5-10.0) K/mm3 RBC 4.14 L (4.2-5.4) M/mm3 Hgb 11.2 L (12.0-15.0) g/dL Hct 34.1 L (37.0-47.0) % MCV 82.4 (80-100) fl MCH 27.1 (26-34) pg MCHC 32.8 (32-36) g/dl RDW 15.6 H (11.5-14.5) % Plt Count 249 (150-375) k/mm3 MPV 10.2 (7.4-10.4) fl Immature Gran % (Auto) 0.7 H (0-0.5) % Neut % (Auto) 72.6 (45.5-73.1) % Lymph % (Auto) 11.9 L (18.3-44.2) % [place] % (Auto) 1.8 L (2.6-8.5) % Eos % (Auto) 12.8 H (0-4.4) % Baso % (Auto) 0.2 (0.2-1.2) % Lymph # (Auto) 0.67 L (0.9-3.2) K/mm3 [place] # (Auto) 0.1 (0.1-0.6) K/mm3 Eos # (Auto) 0.7 H (0-0.3) K/mm3 Baso # (Auto) 0.0 (0.0-0.1) K/mm3 Abs Immat Gran (auto) 0.04 H (0.00-0.031) K/mm3 Absolute Neuts (auto) 4.1 (1.3-6.7) K/mm3 Absolute Nucleated RBC 0.000 (0.0-0.012) K/mm3 Nucleated RBC % 0.0 (0.0-0.2) % Sodium 134 L (137-145) mmol/L Potassium 4.0 (3.4-5.0) mmol/L Chloride 102 (98-107) mmol/L Carbon Dioxide 21 L (22-30) mmol/L Anion Gap 11 (4-12) mmol/L BUN 11 (7-17) mg/dL Creatinine 0.93 (0.7-1.0) mg/dL Estim Creat Clear Calc 63 ml/min Estimated GFR > 60 (59 - ) Glucose 91 (65-110) mg/dL Lactic Acid 1.5 (0.7-2.0) mmol/L Calcium 8.5 (8.4-10.2) mg/dL Total Bilirubin 0.3 (0.2-1.3) mg/dL AST 72 H (14-36) U/L ALT 42 H (6-35) U/L Alkaline Phosphatase 69 (38-126) U/L Total Protein 7.0 (6.3-8.2) g/dL Albumin 4.2 (3.5-5.1) g/dL Urine Color Yellow (Yellow) Urine Appearance Clear (Clear) Urine pH 5.5 (5.0-9.0) Ur Specific [place] 1.020 (1.001-1.035) Urine Protein Trace (Negative) mg/dL Urine Glucose (UA) Negative (Negative) mg/dL Urine Ketones Trace H (Negative) mg/dL Ur Blood (Man) 3+ H (Negative) Urine Nitrate Negative (Negative) Urine Bilirubin Negative (Negative) Urine Urobilinogen 1.0 (<2.0) mg/dL Add Ur Microanalysis Reviewed Leukocyte Esterase Rfl Trace H (Negative) DU/UL Urine RBC >100 H (0-2) /hpf Urine WBC 0-5 (0-3) /hpf Ur Squamous Epith Cells Few (Few) /hpf Urine Bacteria None seen /hpf Urine Casts 6-10 POC Urine HCG, Qual Negative (Negative) Monoscreen Negative (Negative) Group A Strep (PCR) Not detected (Negative) <Luz Galdamez MD - Last Filed: 10/03/24 18:41> Lab Results 10/03/24 10/03/24 Range/Units 18:35 19:54 WBC 5.6 (4.5-10.0) K/mm3 RBC 4.14 L (4.2-5.4) M/mm3 Hgb 11.2 L (12.0-15.0) g/dL Hct 34.1 L (37.0-47.0) % MCV 82.4 (80-100) fl MCH 27.1 (26-34) pg MCHC 32.8 (32-36) g/dl RDW 15.6 H (11.5-14.5) % Plt Count 249 (150-375) k/mm3 MPV 10.2 (7.4-10.4) fl Immature Gran % (Auto) 0.7 H (0-0.5) % Neut % (Auto) 72.6 (45.5-73.1) % Lymph % (Auto) 11.9 L (18.3-44.2) % [place] % (Auto) 1.8 L (2.6-8.5) % Eos % (Auto) 12.8 H (0-4.4) % Baso % (Auto) 0.2 (0.2-1.2) % Lymph # (Auto) 0.67 L (0.9-3.2) K/mm3 [place] # (Auto) 0.1 (0.1-0.6) K/mm3 Eos # (Auto) 0.7 H (0-0.3) K/mm3 Baso # (Auto) 0.0 (0.0-0.1) K/mm3 Abs Immat Gran (auto) 0.04 H (0.00-0.031) K/mm3 Absolute Neuts (auto) 4.1 (1.3-6.7) K/mm3 Absolute Nucleated RBC 0.000 (0.0-0.012) K/mm3 Nucleated RBC % 0.0 (0.0-0.2) % Sodium 134 L (137-145) mmol/L Potassium 4.0 (3.4-5.0) mmol/L Chloride 102 (98-107) mmol/L Carbon Dioxide 21 L (22-30) mmol/L Anion Gap 11 (4-12) mmol/L BUN 11 (7-17) mg/dL Creatinine 0.93 (0.7-1.0) mg/dL Estim Creat Clear Calc 63 ml/min Estimated GFR > 60 (59 - ) Glucose 91 (65-110) mg/dL Lactic Acid 1.5 (0.7-2.0) mmol/L Calcium 8.5 (8.4-10.2) mg/dL Total Bilirubin 0.3 (0.2-1.3) mg/dL AST 72 H (14-36) U/L ALT 42 H (6-35) U/L Alkaline Phosphatase 69 (38-126) U/L Total Protein 7.0 (6.3-8.2) g/dL Albumin 4.2 (3.5-5.1) g/dL Urine Color Yellow (Yellow) Urine Appearance Clear (Clear) Urine pH 5.5 (5.0-9.0) Ur Specific [place] 1.020 (1.001-1.035) Urine Protein Trace (Negative) mg/dL Urine Glucose (UA) Negative (Negative) mg/dL Urine Ketones Trace H (Negative) mg/dL Ur Blood (Man) 3+ H (Negative) Urine Nitrate Negative (Negative) Urine Bilirubin Negative (Negative) Urine Urobilinogen 1.0 (<2.0) mg/dL Add Ur Microanalysis Reviewed Leukocyte Esterase Rfl Trace H (Negative) DU/UL Urine RBC >100 H (0-2) /hpf Urine WBC 0-5 (0-3) /hpf Ur Squamous Epith Cells Few (Few) /hpf Urine Bacteria None seen /hpf Urine Casts 6-10 POC Urine HCG, Qual Negative (Negative) Monoscreen Negative (Negative) Group A Strep (PCR) Not detected (Negative) <Janene Cruz MD - Last Filed: 10/04/24 02:56> Discharge Plan Discharge Clinical Impression: Menstrual cramps, Pharyngitis <Luz Galdamez MD - Last Filed: 10/03/24 18:41> Patient Disposition: Home <Luz Galdamez MD - Last Filed: 10/03/24 18:41> Condition: Stable <Luz Galdamez MD - Last Filed: 10/03/24 18:41> Instructions: Pharyngitis (ED), Acute Abdominal Pain (ED) <Luz Galdamez MD - Last Filed: 10/03/24 18:41> Additional Instructions: Please follow up with your doctor; you can always return for any further issues. <Luz Galdamez MD - Last Filed: 10/03/24 18:41> Patient Language: Kazakh <Luz Galdamez MD - Last Filed: 10/03/24 18:41> Prescriptions: New ketorolac 10 mg tablet 10 mg PO Q6H PRN (Reason: pain) Qty: 20 0RF Rx Instructions: maximum total duration of 5 days from all oral, intranasal, or parenteral formulations. Take this INSTEAD of the ibuprofen for severe pain. No Action multivitamin Tablet 1 tablet PO DAILY zinc acetate 25 mg (zinc) capsule 25 mg PO DAILY sulfamethoxazole-trimethoprim [Bactrim DS] 800-160 mg tablet 1 tablet PO Q12H Qty: 14 0RF fluconazole 150 mg tablet 150 mg PO Q72H PRN (Reason: vaginal itching) Qty: 2 0RF cetirizine 10 mg tablet 10 mg PO DAILY PRN (Reason: allergy symptoms) acetaminophen 500 mg tablet 1,000 mg PO TID Qty: 60 0RF docusate sodium [Colace] 100 mg capsule 100 mg PO BID Qty: 90 0RF ibuprofen 800 mg tablet 800 mg PO TID Qty: 30 0RF <Luz Galdamez MD - Last Filed: 10/03/24 18:41> Follow-up/Referrals: Morgan,HOLLIE DonohueC [Primary Care Provider] - <Luz Galdamez MD - Last Filed: 10/03/24 18:41> Stand Alone Forms: Work/School Release IP <Luz Galdamez MD - Last Filed: 10/03/24 18:41>
--- OUTSIDE RECORDS SUMMARY | 2024-10-03 18:15 | XMS_ITS | Clinical Summary ---
Author Organization [facility] Address [address] [place] [address] Care Team Providers Care Service Line Bus Cleaner Name Role Phone Barbara Mora PA-C Primary Care Provider +1- [phone] Allergies No known active allergies Medications norethindrone-et [...] (SCAN) 08/09/2024 9:40 AM CDT Office Visit [facility] Family Medicine - [address] [phone] Barbara Mora PA-C Follow Up [...] Sex Assigned at Female 06/15/2024 3:47 PM SUPERVISOR HEAT TREATING Legal Sex Female 2:50 PM SUPERVISOR HEAT TREATING Gender Identity Not on file Sexual Orientation [...] Description 08/15/2025 8:20 AM CDT Office Visit [facility] Family Medicine - [address] [phone] Barbara Mora PA-C [address] [place] [address] Health Maintenance Due Date Last Done Comments [...] 1997 (Going to Outside Clinic) PHQ-2 (Physician [place]) Completed 06/09/2024 HPV Vaccines Aged Out No [...] ORDER) 09/12/2024 LIPASE Routine 08/06/2024 11:37 AM SUPERVISOR HEAT TREATING Chronic abdominal pain AMYLASE Routine 08/06/2024 11:37 AM SUPERVISOR HEAT TREATING Chronic abdominal pain COMPREHENSIVE METABOLIC PANEL Routine 08/06/2024 11:37 AM SUPERVISOR HEAT TREATING Chronic abdominal pain CBC W/DIFF AUTOMATED Routine 08/06/2024 11:37 AM SUPERVISOR HEAT TREATING Chronic abdominal pain from Last 3 Months Results * PROCEDURE GENERIC (SCAN ORDER) (09/12/2024) 09/12/2024 [facility] Scanned SCANNING Final Resu lt * COMPREHENSIVE METABOLIC PANEL (08/06/2024 11:37 AM SUPERVISOR HEAT TREATING) GLUCOSE 83 65 - 99 mg/dL [facility] Comment: Fasting reference interval BUN 7 7 - 25 mg/dL [facility] CREATININE S/P/B 0.63 0.50 - 0.96 mg/dL [facility] GFR ESTIMATE 125 > OR = 60 mL/min/1. 73m2 [facility] BUN CREATININE RATIO SEE NOTE: (calc) [facility] Comment: Not Reported: BUN and Creatinine are within reference range. SODIUM S/P/B 138 135 - 146 mmol/L [facility] POTASSIUM S/P/B 4.3 3.5 - 5.3 mmol/L [facility] CHLORIDE S/P/B 104 98 - 110 mmol/L [facility] CO2 27 20 - 32 mmol/L [facility] CALCIUM S/P/B 9.2 8.6 - 10.2 mg/dL [facility] TOTAL PROTEIN S/P/B 7.2 6.1 - 8.1 g/dL [facility] ALBUMIN S/P/B 4.0 3.6 - 5.1 g/dL [facility] GLOBULIN 3.2 1.9 - 3.7 g/dL (calc) [facility] ALBUMIN/GLOBULI N RATIO 1.3 1.0 - 2.5 (calc) [facility] BILIRUBIN TOTAL S/P/B 0.5 0.2 - 1.2 mg/dL [facility] [employer] [facility] ALKALINE PHOSPHATASE S/P/B 44 31 - 125 U/L [employer] [facility] AST 14 10 - 30 U/L [employer] [facility] ALT 9 6 - 29 U/L [employer] [facility] 08/06/2024 11:3 7 AM SUPERVISOR HEAT TREATING 08/06/2024 11:38 AM SUPERVISOR HEAT TREATING Narrative Resulting Agency Comment Performing Organization Information: Site ID: [id number] Name: Francisco Mejía Address: [address] [place], [place] [address] [address] Director: Leila Velasco MD us Barbara Mora PA-C LABORATORY Final Resu lt FRANCISCO RICHMOND - OZ THAKUR [facility] [id number] [place] [address], * CBC W/DIFF AUTOMATED (08/06/2024 11:37 AM SUPERVISOR HEAT TREATING) WBC 8.3 3.8 - 10.8 Thousand/u L [employer] [facility] RBC 4.58 3.80 - 5.10 Million/uL [employer] [facility] HGB 12.4 11.7 - 15.5 g/dL [employer] [place] HCT 38.7 35.0 - 45.0 % [employer] [facility] MCV 84.5 80.0 - 100.0 fL [employer] [facility] MCH 27.1 27.0 - 33.0 pg [employer] [facility] MCHC 32.0 32.0 - 36.0 g/dL [employer] [facility] Comment: For adults, a slight decrease [...] [facility] 08/06/2024 11:3 7 AM SUPERVISOR HEAT TREATING 08/06/2024 11:38 AM SUPERVISOR HEAT TREATING Narrative Resulting Agency Comment Performing Organization Information: Site ID: [id number]: [facility] Address: [address] [place] [phone] Director: Leila Velasco MD Barbara Mora PA-C LABORATORY Final Resu lt Performing Organization Address City/[facility]/ZIP Co de Phone Number [employer] [facility] [employer] [address] [address], [place] * AMYLASE (08/06/2024 11:37 AM SUPERVISOR HEAT TREATING) AMYLASE S/P/B 51 21 - 101 U/L [facility] [employer] [facility] 08/06/2024 11:3 7 AM SUPERVISOR HEAT TREATING 08/06/2024 11:38 AM SUPERVISOR HEAT TREATING Narrative Resulting Agency Comment Performing Organization Information: Site ID: [id number] Name: [facility] Address: [address] [place] [phone] Director: Leila Velasco MD Barbara Mora PA-C LABORATORY Final Resu lt [employer] OZ THAKUR [employer] [address] [address], [place] * LIPASE (08/06/2024 11:37 AM SUPERVISOR HEAT TREATING) LIPASE 15 7 - 60 U/L [facility] 08/06/2024 11:3 7 AM SUPERVISOR HEAT TREATING 08/06/2024 11:38 AM SUPERVISOR HEAT TREATING Narrative Resulting Agency Comment Performing Organization Information: Site ID: [place] Name: Francisco Mejía Address: [address] [place] [address] Director: Leila Velasco MD us Barbara Mora PA-C LABORATORY Final Resu lt [facility] [id number] [place] [address], from Last 3 Months Insurance [facility] Care Teams Service Line Bus Cleaner Relationship Specialty Start Date End Date Barbara Mora PA-C [address] [place] [phone] PCP - General PHYSICIAN RECORDER HELPER SEISMOGRAPH 06/09/24
[2024-10-03] MEDS: diphenhydrAMINE HCl INJ 50 MG/ML VIAL 25 MG IV PUSH (18:37)
[2024-10-03] MEDS: methylPREDNISolone SOD SUCC 125 MG VIAL IV PUSH (18:37)
[2024-10-03] MEDS: FAMOTIDINE 20 MG/2 ML VIAL IV PUSH (18:37)
[2024-10-03] MEDS: SODIUM CHLORIDE 0.9% IV 1,000 ML 999 ML IV CONT (18:37)
[2024-10-03] MEDS: KETOROLAC 15 MG/ML VIAL (*BKC) IV PUSH (18:38)
[2024-10-03 18:54] LABS: Basophils Percent Auto 0.2 % (0.2-1.2); Eosinophils Absolute Auto 0.7 K/mm3 (0-0.3); Eosinophils Percent Auto 12.8 % (0-4.4); Hematocrit 34.1 % (37.0-47.0); Hemoglobin 11.2 g/dL (12.0-15.0); Immature Granulocyte Absolute 0.04 K/mm3 (0.00-0.031); Immature Granulocyte Percent A 0.7 % (0-0.5); Lymphocytes Absolute Auto 0.67 K/mm3 (0.9-3.2); Lymphocytes Percent Auto 11.9 % (18.3-44.2); Mean Corpuscular HGB Conc 32.8 g/dl (32-36); Mean Corpuscular Hemoglobin 27.1 pg (26-34); Mean Corpuscular Volume 82.4 fl (80-100); Mean Platelet Volume 10.2 fl (7.4-10.4); Monocytes Absolute Auto 0.1 K/mm3 (0.1-0.6); Monocytes Percent Auto 1.8 % (2.6-8.5); Neutrophils Absolute Auto 4.1 K/mm3 (1.3-6.7); Neutrophils Percent Auto 72.6 % (45.5-73.1); Platelet Count Result 249 k/mm3 (150-375); Red Blood Count 4.14 M/mm3 (4.2-5.4); Red Cell Distribution Width 15.6 % (11.5-14.5); White Blood Count 5.6 K/mm3 (4.5-10.0)
[2024-10-03 18:57] LABS: Add Urine Microscopic? YES; Appearance Urine Clear (Clear); Bacteria Urine None Seen /hpf; Bilirubin Urine Negative (Negative); Blood Urine 3+ (Negative); Color Urine Yellow (Yellow); Glucose Urine UA Negative (Negative); Ketones Urine Trace mg/dL (Negative); Leukocyte Esterase Ur Trace LEU/UL (Negative); Need Manual Microscopic Reviewed; Nitrate Urine Negative (Negative); Protein Urine Trace mg/dL (Negative); RBC Urine >100 /hpf (0-2); Squamous Epithelial Cell Urine Few /hpf (Few); WBC Urine 0-5 /hpf (0-3); pH Urine 5.5 (5.0-9.0)
[2024-10-03 19:00] LABS: Alanine Aminotransferase 42 U/L (6-35); Albumin Level 4.2 g/dL (3.5-5.1); Alkaline Phosphatase 69 U/L (38-126); Anion Gap 11 mmol/L (4-12); Aspartate Amino Transferase 72 U/L (14-36); Bilirubin,Total 0.3 mg/dL (0.2-1.3); Blood Urea Nitrogen 11 mg/dL (7-17); Calcium 8.5 mg/dL (8.4-10.2); Carbon Dioxide 21 mmol/L (22-30); Chloride 102 mmol/L (98-107); Estimated CRCL calculation 63 ml/min; Estimated Glomerular Filt Rate > 60; Glucose 91 mg/dL (65-110); Lactic Acid Reflex 1.5 mmol/L (0.7-2.0); Sodium 134 mmol/L (137-145)
[2024-10-03 19:08] LABS: Strep Group A RT-PCR NOT DETECTED (Negative)
[2024-10-03 19:39] LABS: Monoscreen Negative (Negative); Negative Monotest Control Negative (Negative); Positive Monotest Control Positive (Positive)
[2024-10-03 19:56] LABS: BEDSIDEPREGUCG Negative (Negative)
[2024-10-03] MEDS: LACTATED RINGERS 1,000 ML 999 ML IV CONT (21:28)
== END 2024-10-03 22:44 | disposition home or self-care (01) ==
PROVIDERS: Emergency Medicine; Emergency Provider Emergency Medicine; PCP Physician Assistant
DX: N94.6 Dysmenorrhea, unspecified (principal); J02.9 Acute pharyngitis, unspecified
CPT/HCPCS: 36415; 71045; 74177; 80053; 81001; 81025; 83605; 85025; 86308; 87651; 96361; 96374; 96375; 99284; J1200; J1885; J2919; J7030; J7120; Q9967

== ENCOUNTER 2025-05-03 11:35 | Emergency (ER) | payer BC, SELFPAY ==
[2025-05-03] VITALS (8 sets, daily range): BP systolic 102–124; BP diastolic 66–87; PULSE 78–88; RESP 16–18; TEMP 36.7; O2SAT 100
--- NOTE | ~2025-05-03 | CT_ITS ---
CT abdomen pelvis w con Clinical History: LUQ abd pain . Comparison: CT abdomen pelvis 10/03/2024 Technique: Axial images lung bases to symphysis pubis IV contrast information not listed in PACS Coronal, sagittal reformats CT images acquired with automatic exposure control for dose reduction DLP: 211 mGy-cm Findings: Lung bases: Clear. Visualized heart and pericardium: Unremarkable. Liver: Tiny probable cyst segment 5. Gallbladder: Unremarkable. Spleen: Unremarkable. Pancreas: Unremarkable. Adrenal glands: Unremarkable. Kidneys: Right kidney- No hydronephrosis. No renal stones. Left kidney- No hydronephrosis. No renal stones. Distal esophagus/stomach: Gastric wall thickening. Small bowel loops: Normal caliber and wall thickness. Colon: Normal caliber and wall thickness. Normal RLQ appendix. Nodes: No enlarged nodes. Peritoneum: No ascites. No free air. Urinary bladder: Unremarkable. Uterus: Retroflexed. Adnexa: Small fatty structure right side consistent with dermoid. Small pelvic free fluid. Bones: No acute bony abnormality. Soft tissues: Unremarkable. Aorta: No aneurysm or dissection. IVC: Unremarkable. Main portal vein/SMV/splenic vein: Patent. IMPRESSION: 1. Gastritis. 2. No other acute abnormality. 3. Probable right adnexal dermoid. Recommend short interval follow-up transvaginal ultrasound. Reviewed, dictated and finalized at location R. OW FRAMER IMPRESSION: 1. Gastritis. 2. No other acute abnormality. 3. Probable right adnexal dermoid. Recommend short interval follow-up transvag inal ultrasound.
--- NOTE | 2025-05-03 12:01 | ED_ITS ---
HPI - Abdominal Pain General Chief Complaint: Abdominal Pain Stated Complaint: severe abdominal pain Time Seen by Provider: 05/03/25 11:38 History of Present Illness HPI narrative: 29-year-old female presents ER complaining of left upper quadrant abdominal pain for 4 days. Denies nausea, vomiting, diarrhea. Patient does admit on taking a daily stool softener due to constipation. States that she took a laxative 2 days ago with no improvement of her symptoms. Denies fevers. Denies dysuria, urinary frequency urgency. Related Data Home Medications ?Medication ?Instructions ?Recorded ?Confirmed ?Last Taken ?Type cetirizine 10 mg tablet 10 mg PO DAILY PRN allergy s ymptoms 02/10/24 02/20/25 Unknown History multivitamin 1 tablet PO DAILY 07/06/24 0 02/20/25 Unknown History zinc acetate 25 mg (zinc) capsule 25 mg PO DAILY 07/0602/20/25 Unknown History Allergies Allergy/AdvReac Type Severity Reaction Status Date / Time sulfamethoxazole (From AdvReac Severe Rash Verified 02/20/25 08:01 Bactrim) trimethoprim (From Bactrim) AdvReac Severe Rash Verified 02/20/25 08:01 Review of Systems 2 Review of Systems: All systems reviewed & are unremarkable except as noted in HPI and below PMFSH Past Medical History Medical History Ovarian cyst Surgical History Surgical History S/P laparoscopic surgery left ovarian cystectomy 09/13/2024 Family History Family History Mother Hypertension Social History Social History (Updated 02/20/25 @ 08:02 by Lyndsay Alfred CMA) Smoking status: Never smoker Second hand tobacco smoke exposure: No Alcohol intake: never Alcohol use details: occasionally Substance use: never Substance use type: does not use Current Housing: Decline to Answer Concerned About Future Housing: Decline to Answer Difficulty Paying Gas/Electric Bills: Decline to Answer Difficulty Paying for Meds: Decline to Answer Currently Unemployed: Decline to Answer Education: Decline to Answer Difficulty w/ Childcare or Family Care: Decline to Answer Living arrangements: alone Additional living arrangements comments: single Occupation/Education: occupation Additional occupation/education comments: Customer Services Gender identity (if verbalized by the patient): Female Sexual Orientation (if Verbalized by the Patient): Straight or Heterosexual Spiritual care concerns: No Exam 2 Const: General: healthy appearing, no acute distress and alert Resp: Effort & Inspection: normal respiratory effort Auscultation: clear to auscultation bilaterally Cardio: Rate: regular rate Rhythm: regular rhythm GI: GI Palp: Yes Soft to palpation and Yes Tenderness to palpation present (GI) Other: upper abd tenderness radiating into left upper quadrant Skin: General skin exam: normal color Neuro: General: patient oriented x3 and moves all extremities Psych: Mental Status: mental status grossly normal Affect: normal affect Attitude: cooperative Course Vital Signs Vital signs: Vital Signs Temperature 36.7 C 05/03/25 11:42 Pulse Rate 88 05/03/25 11:42 Respiratory Rate 16 05/03/25 11:42 Blood Pressure 124/85 05/03/25 11:42 Pulse Oximetry 100 05/03/25 11:42 Oxygen Delivery Room Air 05/03/25 11:42 Temperature 36.7 C 05/03/25 11:42 Pulse Rate 81 05/03/25 13:12 Respiratory Rate 16 05/03/25 13:12 Blood Pressure 103/70 05/03/25 13:12 Pulse Oximetry 100 05/03/25 13:12 Oxygen Delivery Room Air 05/03/25 11:42 MDM MDM Narrative Medical decision making narrative: In summary: 29 female presents to the ER complaining of left-sided abdominal pain 3 a kovacs into the mid abdomen. Lab work was reassuring. CT scan shows evidence of stool burden descending colon and colitis. Plans discharge patient home with omeprazole and magnesium citrate. Differential Diagnosis Differential Diagnosis: Constipation, gastritis, pancreatitis, GERD Lab Data 05/03/25 12:18 05/03/25 12:18 Labs: Lab Results 05/03/25 Range/Units 12:18 WBC 7.4 (4.5-10.0) K/mm3 RBC 4.15 L (4.2-5.4) M/mm3 Hgb 11.4 L (12.0-15.0) g/dL Hct 34.0 L (37.0-47.0) % MCV 81.9 (80-100) fl MCH 27.5 (26-34) pg MCHC 33.5 (32-36) g/dl RDW 14.5 (11.5-14.5) % Plt Count 281 (150-375) k/mm3 MPV 10.5 H (7.4-10.4) fl Immature Gran % (Auto) 0.1 (0-0.5) % Neut % (Auto) 57.2 (45.5-73.1) % Lymph % (Auto) 29.3 (18.3-44.2) % [place] % (Auto) 7.1 (2.6-8.5) % Eos % (Auto) 5.4 H (0-4.4) % Baso % (Auto) 0.9 (0.2-1.2) % Lymph # (Auto) 2.16 (0.9-3.2) K/mm3 [place] # (Auto) 0.5 (0.1-0.6) K/mm3 Eos # (Auto) 0.4 H (0-0.3) K/mm3 Baso # (Auto) 0.1 (0.0-0.1) K/mm3 Abs Immat Gran (auto) 0.01 (0.00-0.031) K/mm3 Absolute Neuts (auto) 4.2 (1.3-6.7) K/mm3 Absolute Nucleated RBC 0.000 (0.0-0.012) K/mm3 Nucleated RBC % 0.0 (0.0-0.2) % Sodium 136 L (137-145) mmol/L Potassium 3.6 (3.4-5.0) mmol/L Chloride 106 (98-107) mmol/L Carbon Dioxide 24 (22-30) mmol/L Anion Gap 6 (4-12) mmol/L BUN 11 (7-17) mg/dL Creatinine 0.64 L (0.7-1.0) mg/dL Estim Creat Clear Calc 89 ml/min Estimated GFR > 60 (59 - ) Glucose 83 (65-110) mg/dL Calcium 9.1 (8.4-10.2) mg/dL Total Bilirubin 0.7 (0.2-1.3) mg/dL AST 24 (14-36) U/L ALT 11 (6-35) U/L Alkaline Phosphatase 65 (38-126) U/L Total Protein 7.7 (6.3-8.2) g/dL Albumin 4.5 (3.5-5.1) g/dL Lipase 60 (23-300) U/L Urine Color Yellow (Yellow) Urine Appearance Clear (Clear) Urine pH 6.0 (5.0-9.0) Ur Specific [place] 1.005 (1.001-1.035) Urine Protein Negative (Negative) mg/dL Urine Glucose (UA) Negative (Negative) mg/dL Urine Ketones Negative (Negative) mg/dL Ur Blood (Man) Negative (Negative) Urine Nitrate Negative (Negative) Urine Bilirubin Negative (Negative) Urine Urobilinogen 0.2 (<2.0) mg/dL Leukocyte Esterase Rfl Trace H (Negative) DU/UL Urine RBC 0-2 (0-2) /hpf Urine WBC 0-5 (0-3) /hpf Ur Squamous Epith Cells None seen (Few) /hpf Urine Bacteria None seen /hpf Urine Casts 0-2 Urine Test Negative Imaging Data Radiologist's impression: ITS Impressions Abdomen/Pelvis CT 05/03/25 13:31 IMPRESSION: 1. Gastritis. 2. No other acute abnormality. 3. Probable right adnexal dermoid. Recommend short interval follow-up transvaginal ultrasound. Discharge Plan Discharge Clinical Impression: Gastritis Qualifiers: Gastritis type: unspecified gastritis Chronicity: acute Gastritis bleeding: w ithout bleeding Qualified Code(s): K29.00 - Acute gastritis without bleeding Patient Disposition: Home Condition: Stable Instructions: Antibiotic Form, Gastritis (ED) Patient Language: Swedish Prescriptions: New omeprazole 20 mg capsule,delayed release(DR/EC) 20 mg PO DAILY Qty: 20 0RF magnesium citrate [OneLAX Magnesium Citrate] Solution 300 ml PO ONCE Qty: 296 0RF Rx Instructions: as a single dose No Action multivitamin Tablet 1 tablet PO DAILY zinc acetate 25 mg (zinc) capsule 25 mg PO DAILY cetirizine 10 mg tablet 10 mg PO DAILY PRN (Reason: allergy symptoms) acetaminophen 500 mg tablet 1,000 mg PO TID Qty: 60 0RF docusate sodium [Colace] 100 mg capsule 100 mg PO BID Qty: 90 0RF ketorolac 10 mg tablet 10 mg PO Q6H PRN (Reason: pain) Qty: 20 0RF Rx Instructions: maximum total duration of 5 days from all oral, intranasal, or parenteral formulations. Take this INSTEAD of the ibuprofen for severe pain. Follow-up/Referrals: UNKNOWN,DOCTOR [Non-Staff] Stand Alone Forms: Work/School Release IP Time of Disposition: 14:21
[2025-05-03] MEDS: SODIUM CHLORIDE 0.9% IV 2,000 ML 999 ML IV CONT (12:17)
[2025-05-03 12:27] LABS: Hematocrit 34.0 % (37.0-47.0); Hemoglobin 11.4 g/dL (12.0-15.0); Immature Granulocyte Percent A 0.1 % (0-0.5); Lymphocytes Absolute Auto 2.16 K/mm3 (0.9-3.2); Mean Corpuscular HGB Conc 33.5 g/dl (32-36); Mean Corpuscular Hemoglobin 27.5 pg (26-34); Mean Corpuscular Volume 81.9 fl (80-100); Nucleated Red Blood Cells Absolute Auto 0.000 K/mm3 (0.0-0.012); Nucleated Red Blood Cells Perc 0.0 % (0.0-0.2); Platelet Count Result 281 k/mm3 (150-375); Red Blood Count 4.15 M/mm3 (4.2-5.4); White Blood Count 7.4 K/mm3 (4.5-10.0)
[2025-05-03 12:30] LABS: Add Urine Microscopic? YES; Appearance Urine Clear (Clear); Glucose Urine UA Negative (Negative); Leukocyte Esterase Ur Trace LEU/UL (Negative); Nitrate Urine Negative (Negative); Non Pathogenic Casts 0-2; Specific Grav Ur 1.005 (1.001-1.035)
[2025-05-03 12:36] LABS: Pregnancy On Board Control Positive
[2025-05-03 12:40] LABS: Alanine Aminotransferase 11 U/L (6-35); Albumin Level 4.5 g/dL (3.5-5.1); Alkaline Phosphatase 65 U/L (38-126); Anion Gap 6 mmol/L (4-12); Aspartate Amino Transferase 24 U/L (14-36); Bilirubin,Total 0.7 mg/dL (0.2-1.3); Blood Urea Nitrogen 11 mg/dL (7-17); Calcium 9.1 mg/dL (8.4-10.2); Carbon Dioxide 24 mmol/L (22-30); Chloride 106 mmol/L (98-107); Estimated CRCL calculation 89 ml/min; Estimated Glomerular Filt Rate > 60; Glucose 83 mg/dL (65-110); Lipase 60 U/L (23-300); Potassium 3.6 mmol/L (3.4-5.0); Sodium 136 mmol/L (137-145); Total Protein 7.7 g/dL (6.3-8.2)
--- OUTSIDE RECORDS SUMMARY | 2025-05-03 13:08 | XMS_ITS | Clinical Summary ---
Author Organization [facility] Address [address] [place] [address] Care Team Providers Care Regional Agronomist Name Role Phone Barbara Mora PA-C Primary Care Provider +1- [phone] Allergies Active Allergy Reactions Criticality Noted Date Comments Sulfamethoxazole-Trimethoprim Rash Low 2024 Medications norethindrone-et hinyl estradiol (AUROVELA 06/20) 1-20 MG-MCG tablet Take 1 tablet by mouth daily. 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 Gender Identity Not on file Sexual Orientation [...] 9:43 AM CDT Height 157.5 cm (5' 2) 08/09/2024 9:43 AM CDT Body Mass Index 22.97 08/09/2024 9:43 AM CDT Plan of Treatment Upcoming Encounters Date Type Department Care Team (Late st Contact Info) Description 08/15/2025 8:20 AM CDT Office Visit [facility] Family Medicine - [place] [address] [place] [address] Barbara Mora PA-C [address] [place] [address] Health Maintenance Due Date Last Done Comments Cervical Cancer Screening Pa p Smear (Age 21 to 29) Every 3 Years 1997 Annual Physical 2000 Hepatitis C 2015 DTaP, Tdap and Td Vaccines ( 1 - Tdap) 2016 Hepatitis B Vaccines (1 of 3 - 19+ 3-dose series) 2016 HPV Vaccines (1 - 3-dose SCD M series) 2024 COVID-19 Vaccine ( - 2024-2 6 season) 2025 Influenza Adult (#1) 2025 Cervical Cancer Screening 06/09/2025 Po stponed from 1997 (Going to Outside Clinic) PHQ-2 (Physician [place]) Completed 06/09/2024 Hepatitis A Vaccines Aged Out No long er eligible based on patient's age to complete [...] on patient's age to complete this topic Insurance [facility] Care Teams Regional Agronomist Relationship Specialty Start Date End Date Barbara Mora PA-C [address] [place] [id number] PCP - General PHYSICIAN BAIT MAKER 06/09/24
[2025-05-03] MEDS: KETOROLAC 30 MG/ML VIAL (*BKC) IV PUSH (13:11)
[2025-05-03] MEDS: PANTOPRAZOLE SODIUM IV 40 MG VIAL IV PUSH (14:31)
== END 2025-05-03 14:37 | disposition home or self-care (01) ==
PROVIDERS: Emergency Provider Nurse Practitioner Family; PCP Obstetrics & Gynecology
DX: K29.00 Acute gastritis without bleeding (principal)
CPT/HCPCS: 36415; 74177; 80053; 81001; 81025; 83690; 85025; 96361; 96374; 96375; 99284; J1885; J2470; J7030; Q9967